=== PATIENT | female | born 1930 | race Caucasian/White ===

== ENCOUNTER 2017-04-18 14:31 | Emergency (ER) | payer MEDICARE, MEDICAID ==
[~2017-04-18] VITALS: Ht 160 cm; Wt 59.0 kg
[~2017-04-18 14:31] MED LIST: AMLO5TAB4; ATEN50TA PO; LOPRESSOR; LOSA25TA12; OMEP20CA10 PO; SIMV20TA2
[2017-04-18] MEDS ORDERED: PROT20 PO (15:26)
[2017-04-18 16:13] LABS: BASOPHILS % 0.6 % (0.0-2.0); EOSINOPHILS % 0.2 % (0.0-5.0); HEMATOCRIT. 35.9 % (36.0-48.0); MEAN CORPUSCULAR HEMOGLOBIN 29.7 pg (28.0-32.0); MEAN CORPUSCULAR VOLUME 88.4 fL (81.0-99.0); MEAN PLATELET VOLUME 10.6 fl (7.4-10.4); MONOCYTES % 12.7 % (2.0-8.0); NEUTROPHILS % 73.5 % (40.0-76.0); PLATELET 126 x1000/uL (130-400); RED BLOOD CELL COUNT 4.06 mill/uL (4.2-5.4); RED CELL DISTRIBUTION WIDTH 14.3 % (11.6-14.6)
[2017-04-18 16:19] LABS: CARBON DIOXIDE 25 mEq/L (21-32); CHLORIDE 103 mEq/L (98-107)
[2017-04-18] MEDS ORDERED: SODIUM CHLORIDE 0.9% 1,000 ML IV ONE (16:22)
[2017-04-18] MEDS ORDERED: MAGNESIUM CITRATE 300ML SOLUTION PO ONE (17:30)
[2017-04-18 17:45] VITALS: BP 158/72
== END 2017-04-18 17:50 | disposition home or self-care (01) ==
LOC: ER 15:45
DX: B34.9 Viral infection, unspecified (principal); K59.00 Constipation, unspecified; M54.31 Sciatica, right side; I25.10 Atherosclerotic heart disease of native coronary artery without angina pectoris; K21.9 Gastro-esophageal reflux disease without esophagitis; I10 Essential (primary) hypertension; E78.00 Pure hypercholesterolemia, unspecified; Z95.1 Presence of aortocoronary bypass graft
CPT/HCPCS: 36415; 71010; 74000; 80048; 85025; 96360; 96361; 99285; J7030

== ENCOUNTER 2020-01-04 06:54 | Inpatient (IN) | payer MEDICARE, MEDICAID ==
[~2020-01-04] VITALS: Ht 304.8 cm; Wt 54.1 kg
[~2020-01-04 06:54] MED LIST changes: -LOSA25TA12; +LOSA25TA26; -OMEP20CA10 PO; +OMEP20CA14 PO; +PROT20 PO
[2020-01-04] MEDS ORDERED: MORPHINE SULFATE 4 MG/ML CPJ (NOT FOR IM USE) IV STA (07:38)
[2020-01-04] MEDS ORDERED: ONDANSETRON HCL 4MG/2ML INJ IV STA (07:38)
[2020-01-04 08:18] LABS: BASOPHILS % 1.1 % (0.0-2.0); HEMOGLOBIN. 8.3 g/dL (12.0-16.0); LYMPHOCYTES % 23.5 % (20.0-50.0); MEAN CORPUSCULAR HEMOGLOBIN 22.7 pg (28.0-32.0); MEAN CORPUSCULAR VOLUME 73.7 fL (81.0-99.0); MEAN PLATELET VOLUME 10.3 fl (7.4-10.4); MONOCYTES % 11.1 % (2.0-8.0); NEUTROPHILS % 62.3 % (40.0-76.0); PLATELET 203 x1000/uL (130-400); RED BLOOD CELL COUNT 3.66 mill/uL (4.2-5.4); RED CELL DISTRIBUTION WIDTH 19.4 % (11.6-14.6)
[2020-01-04 08:26] LABS: CHLORIDE 111 mEq/L (98-107)
[2020-01-04 08:28] LABS: INR 1.3
[2020-01-04] MEDS ORDERED: SODIUM CHLORIDE 0.9% 1,000 ML IV ONE (09:26)
[2020-01-04 10:57] LABS: CLARITY URINE CLEAR (CLEAR); COLOR URINE YELLOW (YELLOW); KETONES URINE NEGATIVE (NEGATIVE); LEUKOCYTE ESTERASE URINE NEGATIVE (NEGATIVE); NITRITE URINE NEGATIVE (NEGATIVE); OCCULT BLOOD URINE NEGATIVE (NEGATIVE); PH URINE 5.5 (4.5-8.0); PROTEIN URINE 2+ (NEGATIVE); SPECIFIC GRAVITY URINE 1.062 (1.005-1.030)
[2020-01-04] MEDS ORDERED: IOHEXOL-300 100 ML BOTTLE ONE (11:27)
[2020-01-04] MEDS ORDERED: GUAIFENESIN 200MG/10ML SUGAR FREE UDC PO PRN (15:30)
[2020-01-04] MEDS ORDERED: NA PHOS,M-B/NA PHOS,DI-BA ENEMA 118ML PR PRN (15:30)
[2020-01-04] MEDS ORDERED: ONDANSETRON HCL 4MG/2ML INJ IV PRN (15:30)
[2020-01-04] MEDS ORDERED: PIPERACILLIN/TAZ 3.375G PREMIX 50 ML IV NR (15:30)
[2020-01-04] MEDS ORDERED: NITROGLYCERIN 0.4MG TABLET SL SL PRN (15:30)
[2020-01-04] MEDS ORDERED: MORPHINE SULFATE 2 MG/ML CPJ (NOT FOR IM USE) IV PRN (15:30)
[2020-01-04] MEDS ORDERED: CLONIDINE 0.1MG TABLET PO PRN (15:30)
[2020-01-04] MEDS ORDERED: MAGNESIUM/ALUMINUM HYDROXIDE/SIMETHICONE 30ML UDC PO PRN (15:30)
[2020-01-04] MEDS ORDERED: IPRATROPIUM/ALBUTEROL 0.5-3(2.5)MG/3ML NEB NEB PRN (15:30)
[2020-01-04] MEDS ORDERED: DOCUSATE SODIUM 100MG CAPSULE PO PRN (15:30)
[2020-01-04] MEDS ORDERED: KETOROLAC 15MG/ML VIAL IV PRN (15:30)
[2020-01-04] MEDS ORDERED: ACETAMINOPHEN 325MG TABLET PO PRN ×2 (15:30)
[2020-01-04] MEDS ORDERED: ENOXAPARIN 40MG/0.4ML SYR SUBCUT SCH (15:30)
[2020-01-04 16:23] LABS: FOLIC ACID (FOLATE) SERUM >20 ng/mL ng/mL (>5.38)
[2020-01-04 16:34] LABS: VITAMIN B12 SERUM 1312 pg/mL (211-911)
[2020-01-04] MEDS: DEXT 5%/LACTATED RINGERS 1,000 ML IV SCH (17:38)
[2020-01-04] MEDS: ENOXAPARIN 30MG/0.3ML SYR SUBCUT SCH (17:38)
[2020-01-04] MEDS: FUROSEMIDE 40MG/4ML VIAL IVP SCH (17:41)
[2020-01-04] MEDS: SPIRONOLACTONE 25MG TABLET PO SCH (20:00)
[2020-01-04] MEDS ORDERED: ZOLPIDEM TARTRATE 5MG TABLET PO PRN (21:00)
[2020-01-04] MEDS: METOPROLOL TARTRATE 25MG TABLET PO SCH (21:44)
[2020-01-04] MEDS: PIPERACILLIN/TAZOBACTAM 2.25 G in DEXTROSE 5% WATER 50 ML IV SCH (22:00)
[2020-01-04 22:40] VITALS: BP 144/48
[2020-01-05] VITALS: BP 139/42
[2020-01-05 00:16] LABS: CREATINE KINASE MB FRACTION 3.1 ng/mL (0.5-3.6)
[2020-01-05 04:00] VITALS: BP 148/64
[2020-01-05] MEDS: PIPERACILLIN/TAZOBACTAM 2.25 G in DEXTROSE 5% WATER 50 ML IV SCH ×3 (06:11→21:49)
[2020-01-05] MEDS: FUROSEMIDE 40MG/4ML VIAL IVP SCH (07:05)
[2020-01-05 07:23] LABS: BASOPHILS % 1.6 % (0.0-2.0); HEMATOCRIT. 26.6 % (36.0-48.0); HEMOGLOBIN. 8.2 g/dL (12.0-16.0); LYMPHOCYTES % 23.5 % (20.0-50.0); MEAN CORPUSCULAR HEMOGLOBIN 22.5 pg (28.0-32.0); MEAN CORPUSCULAR VOLUME 72.9 fL (81.0-99.0); MEAN PLATELET VOLUME 10.5 fl (7.4-10.4); MONOCYTES % 10.6 % (2.0-8.0); NEUTROPHILS % 62.3 % (40.0-76.0); PLATELET 187 x1000/uL (130-400); RED BLOOD CELL COUNT 3.64 mill/uL (4.2-5.4); RED CELL DISTRIBUTION WIDTH 19.8 % (11.6-14.6)
[2020-01-05 07:55] LABS: CHLORIDE 111 mEq/L (98-107)
[2020-01-05 08:00] VITALS: BP 130/43
[2020-01-05 08:03] LABS: PHOSPHORUS 3.6 mg/dL (2.5-4.9)
[2020-01-05 08:06] LABS: CREATINE KINASE 104 IU/L (26-192)
[2020-01-05 08:08] LABS: CREATINE KINASE MB FRACTION 3.2 ng/mL (0.5-3.6)
[2020-01-05] MEDS ORDERED: FUROSEMIDE 40MG/4ML VIAL IVP NR (08:15)
[2020-01-05] MEDS: METOPROLOL TARTRATE 25MG TABLET PO SCH (09:00)
[2020-01-05] MEDS: SPIRONOLACTONE 25MG TABLET PO SCH ×2 (10:19→16:37)
[2020-01-05] MEDS: PANTOPRAZOLE SODIUM 40 MG/VIAL IV SCH (10:19)
[2020-01-05] MEDS: DEXT 5%/LACTATED RINGERS 1,000 ML IV SCH (10:20)
[2020-01-05 12:00] VITALS: BP 149/65
[2020-01-05 16:00] VITALS: BP 151/43
[2020-01-05] MEDS: ENOXAPARIN 30MG/0.3ML SYR SUBCUT SCH (16:38)
[2020-01-05 20:00] VITALS: BP 112/39
[2020-01-06] VITALS: BP 118/46
[2020-01-06] MEDS: DEXT 5%/LACTATED RINGERS 1,000 ML IV SCH ×3 (01:08→22:33)
[2020-01-06 04:00] VITALS: BP 127/64
[2020-01-06] MEDS: PIPERACILLIN/TAZOBACTAM 2.25 G in DEXTROSE 5% WATER 50 ML IV SCH ×3 (06:04→22:33)
[2020-01-06 08:00] VITALS: BP 120/52
[2020-01-06] MEDS: SPIRONOLACTONE 25MG TABLET PO SCH ×2 (10:39→17:05)
[2020-01-06] MEDS: FUROSEMIDE 20MG TABLET PO SCH (10:39)
[2020-01-06] MEDS: PANTOPRAZOLE SODIUM 40 MG/VIAL IV SCH (10:39)
[2020-01-06 12:00] VITALS: BP 174/50
[2020-01-06 16:00] VITALS: BP 132/42
[2020-01-06] MEDS: ENOXAPARIN 30MG/0.3ML SYR SUBCUT SCH (17:06)
[2020-01-06 20:00] VITALS: BP 127/44
[2020-01-07] VITALS: BP 143/40
[2020-01-07 04:00] VITALS: BP 133/33
[2020-01-07] MEDS: PIPERACILLIN/TAZOBACTAM 2.25 G in DEXTROSE 5% WATER 50 ML IV SCH ×2 (06:30→13:14)
[2020-01-07 08:00] VITALS: BP 153/34
[2020-01-07] MEDS ORDERED: FAMOTIDINE 20MG/2ML VIAL IV SCH (09:00)
[2020-01-07] MEDS: DEXT 5%/LACTATED RINGERS 1,000 ML IV SCH (09:15)
[2020-01-07] MEDS: FUROSEMIDE 20MG TABLET PO SCH (09:15)
[2020-01-07] MEDS: SPIRONOLACTONE 25MG TABLET PO SCH ×2 (09:15→16:46)
[2020-01-07 12:00] VITALS: BP 156/38
[2020-01-07 13:54] VITALS: BP 156/38
[2020-01-07 16:00] VITALS: BP 156/33
[2020-01-07] MEDS: ENOXAPARIN 30MG/0.3ML SYR SUBCUT SCH (16:00)
== END 2020-01-07 18:59 | disposition home or self-care (01) | DRG 444 ==
LOC: ER 06:54 → 5WST 11:43 → EDBEDREQ 11:44 → EDBEDREQTM 11:44 → CANRESERV 14:46 → ENRESERV 14:46 → SUPCPDRO 15:29 → EDBEDREQSVC 15:36 → ENRESERV 20:51
PROVIDERS: ADMIT Internal Medicine; ATTEND Internal Medicine
DX: K80.00 Calculus of gallbladder with acute cholecystitis without obstruction (principal); I50.33 Acute on chronic diastolic (congestive) heart failure; E44.0 Moderate protein-calorie malnutrition; M48.54XA Collapsed vertebra, not elsewhere classified, thoracic region, initial encounter for fracture; Z68.1 Body mass index [BMI] 19.9 or less, adult; I11.0 Hypertensive heart disease with heart failure; E83.51 Hypocalcemia; D50.9 Iron deficiency anemia, unspecified; R00.1 Bradycardia, unspecified; I25.10 Atherosclerotic heart disease of native coronary artery without angina pectoris; D63.8 Anemia in other chronic diseases classified elsewhere; E78.00 Pure hypercholesterolemia, unspecified; I08.0 Rheumatic disorders of both mitral and aortic valves; I27.20 Pulmonary hypertension, unspecified; K21.9 Gastro-esophageal reflux disease without esophagitis; Z95.0 Presence of cardiac pacemaker; Z95.2 Presence of prosthetic heart valve; Z95.1 Presence of aortocoronary bypass graft
CPT/HCPCS: 36415; 71045; 74177; 76700; 80053; 80061; 81003; 82550; 82553; 82607; 82746; 82962; 83036; 83540; 83550; 83605; 83735; 83880; 84100; 84484; 85025; 93005; 93306; 93970; 96374; 97116; 97162; 97166; 97530; 99285; C9113; J1650; J1940; J2270; J2405; J2543; J3490; J7030; J7060; Q9967